=== PATIENT | male | born 1940 | race Caucasian/White ===

== ENCOUNTER 2017-01-18 23:09 | Inpatient (IN) | payer MEDICARE ==
[~2017-01-18] VITALS: Ht 180.3 cm; Wt 96.1 kg
[~2017-01-18 23:09] MED LIST: ALBU8.5H4 IH; CLOP75TA14 PO; CRES20T PO; DOXA4TAB2 PO; FLE10 PO; FLUT50DI IH; HYD1C EXT; HYDR1TAB91 PO; HYG25 PO; LISI10TA PO; METO25T PO; NASOCORT INH; NITR0.4T SL; OMEP20TA86 PO; PROZ20 PO; [UNRECOGNIZED DRUG - CODE] OP
[2017-01-19] VITALS (11 sets, daily range): BP systolic 111–145; BP diastolic 66–80; PULSE 69–88; RESP 24–48; O2SAT 88–97
[2017-01-19] MEDS ORDERED: Albuterol-Ipratropium 3 mL Inhalation Solution NEB PRN (02:15)
[2017-01-19] MEDS ORDERED: Alum-Mag Hydrox-Simeth 30 mL Suspension PO PRN (02:15)
[2017-01-19] MEDS ORDERED: Polyethylene Glycol (PEG) 17 Gm Powder PO PRN (02:15)
[2017-01-19 02:26] LABS: APPEARANCE,URINE HAZY (CLEAR,HAZY); COLOR,URINE DARK YELLOW (YELLOW); OCCULT BLOOD,URINE NEGATIVE (NEGATIVE); PH,URINE 5.5 (5.0-8.0); UROBILINOGEN,URINE NORMAL (NORMAL)
[2017-01-19] MEDS: 0.9% Sodium Chloride 500 ML IV SCH ×2 (03:35→09:02)
--- NOTE | 2017-01-19 04:21 | NUR ---
Admit Patient admitted to room 3[address] from [facility]. On arrival patient very dyspneic with respiratory rate in the 40s and SpO2 93% on 8L O2 via oxymask. Patient states that he has been feeling increasingly short of breath over the last several days. A&Ox3, RUBIO; able to stand at bedside to use urinal with 1 person assist. NS running at 100ml/hour. Continue to monitor.
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
[2017-01-19] MEDS: Albuterol-Ipratropium 3 mL Inhalation Solution NEB SCH ×4 (06:00→19:27)
[2017-01-19] MEDS: cefTRIAXone Inj 2,000 MG in Dextrose 5% Minibag Plus 50 ML IV SCH (07:53)
[2017-01-19 07:59] LABS: BASOPHILS % (AUTO) 0 % (0-3); EOSINOPHILS % (AUTO) 0 % (0-5); MONOCYTES % (AUTO) 2.1 % (4-12); Mean Corpuscular Hemoglobin 28.2 pg (27.0-35.0); Mean Corpuscular Volume 82.3 fL (81-100); NEUTROPHILS % (AUTO) 92.4 % (40-74); Platelet Count 159 bil/L (150-400)
[2017-01-19] MEDS: Sodium Chloride LOK Flush 10 mL Syringe IVFLUSH SCH ×2 (08:30→16:26)
[2017-01-19] MEDS: guaiFENesin 600 mg ER12 Tablet PO SCH ×3 (08:30→21:26)
[2017-01-19 08:50] LABS: Magnesium 1.7 mg/dL (1.6-2.6); Phosphorus 4.3 mg/dL (2.5-4.9); TROPONIN T 0.01 ug/L (0.0-0.011)
[2017-01-19] MEDS: predniSONE 20 mg Tablet PO SCH (08:59)
[2017-01-19] MEDS: Azithromycin Inj 500 MG in Dextrose 5% w/Vial Mate 250 ML IV SCH (08:59)
[2017-01-19] MEDS: Heparin 5,000 Unit/mL Inj SUBQ SCH ×2 (09:02→16:26)
--- NOTE | 2017-01-19 09:11 | DRSVH ---
PROCEDURE: US VENOUS LEG DUPLEX BILATERAL INDICATIONS: RLE edema, sob TECHNIQUE: Real-time imaging, as well as color and pulse Doppler interrogation, were performed of the deep veins of both legs from the inguinal ligament to the popliteal fossa. COMPARISON: None. FINDINGS: The deep veins are normally compressible, and free of intraluminal thrombus. Color and pu lse Doppler demonstrate normal phasic intravascular flow. There is normal augmentation response to d istal compression maneuver. IMPRESSION: No DVT found over either lower extremity. Dictated by: Phan Malik M.D. on 01/19/2017 at 9:10 Approved by: Phan Malik M.D. on 01/19/2017 at 9:11
[2017-01-19] MEDS ORDERED: PARO20TA5 PO (10:52)
[2017-01-19] MEDS ORDERED: PRD1T PO (10:52)
[2017-01-19] MEDS ORDERED: TRAZ-115 PO (10:52)
[2017-01-19] MEDS ORDERED: LIP40 PO (10:53)
[2017-01-19] MEDS ORDERED: ASPI-973 PO (10:54)
[2017-01-19] MEDS ORDERED: DOXY100C2 PO (10:54)
[2017-01-19] MEDS ORDERED: QUET50TA55 PO (10:56)
--- NOTE | 2017-01-19 11:27 | NUR ---
Evaluation completed. Please go to "Notes" then click on "Assessments and Notes" (bottom left corner of screen). Then select appropriate discipline tab on top of screen. Addendum: 01/19/17 at 1139 by MCKINLEY CABALLERO Recommend an outpatient modified barium swallow study d/t intermittent signs/symptoms of aspiration and hx of pneumonia. Also recommend an esophagram either as inpatient or outpatient d/t significant reflux.
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
--- NOTE | 2017-01-19 15:00 | DRSVH ---
PROCEDURE: CT ANGIO CHEST PULMONARY EMBOLISM ([id number]) INDICATIONS: tachycardia, tachypneic TECHNIQUE: After the administration of intravenous contrast, 2 mm thick sections acquired from the pulmonary api montse to the posterior costophrenic angles. 3-dimensional maximum intensity projection (MIP) coronal a nd sagittal reformats were then acquired through the thorax. For radiation dose reduction, the follo wing was used: automated exposure control, adjustment of mA and/or kV according to patient size. COMPARISON: [facility], CT, THORAX WITHOUT CONTRAST, 12/12/2016, 8:42. [facility], CR, [address] ST 1 VIEW, 12/09/2016, 21:35. [facility], CR, CHEST 1 VIEW, 02/02/2016, 7:19. [facility], C R, CHEST 2 VIEW, 03/18/2015, 15:47. [facility] CR, CHEST 1 VIEW, 01/18/2017, 20:33. [facility], CR, CHEST 1 VIEW, 01/03/2017, 16:54. FINDINGS: Image quality: Excellent. Pulmonary arteries: Pulmonary arteries are normal in size, and demonstrate no intraluminal filling d efects to suggest central pulmonary embolism. Lungs and pleura: Lungs are abnormal with a combination of pulmonary fibrosis and mild alveolitis, w ith superimposed COPD.. No pleural effusions or pneumothorax. Central and peripheral airways are pa tent. Mediastinum: Heart size is normal, without pericardial effusion. No mediastinal or hilar adenopathy . Thoracic aorta is normal in caliber and enhancement. Esophagus is normal in caliber, without hiat al hernia. Bones and chest wall: No suspicious bony lesions. Ribs and thoracic spine appear intact throughout. Thyroid gland is not well visualized. No axillary or supraclavicular adenopathy. Abdomen: Visualized upper abdominal solid organs appear normal in the early arterial phase of enhanc ement. IMPRESSION: A combination of emphysematous change and fibrotic change with mild alveolitis superimpo sed is present but no pulmonary embolus is seen. With reference to multiple prior plain films there has been little if any change in the overall appearance of the lung parenchyma over time. Dictated by: Phan Malik M.D. on 01/19/2017 at 14:55 Approved by: Phan Malik M.D. on 01/19/2017 at 14:58
--- NOTE | 2017-01-19 15:03 | PCM.PNMED ---
Subjective Date of Service Jan 19, 2017 Subjective Patient is a 76 year-old male with h/o COPD on home oxygen (3 L) and pulmonary fibrosis who presented with 3 days of increased shortness of breath. He was recently hospitalized from 01/03-01/08/[address] [facility] for acute on chronic hypoxic respiratory failure with very similar symptoms. Hospital day 1 Patient came in overnight from [facility]. He is a very poor historian ( dementia) and lets his take care of his medications. When examined, patient denied SOB, diaphoresis, leg pain, headache, palpitations, chest pain. He is not quite sure what diagnoses he has but does know that he uses 3-4 L of O2 at home. . Exam Vital Signs Vital Sign - Last Date Time Temp Pulse Resp B/P Pulse Ox O2 Delivery O2 Flow Rate FiO2 01/19/17 14:20 36.6 75 38 111/70 92 Nasal Cannula 3.00 Intake and Output 01/18/17 01/18/17 01/19/17 Cumulative From/Thru 15:00 23:00 07:00 01/19/17 00:55 - 01/19/17 06:38 Intake Total 323 ml 323 ml Output Total 350 ml 350 ml Balance -27 ml -27 ml Intake IV Total 323 ml 323 ml Output Urine Total 350 ml 350 ml # Bowel Movements 0 0 Exam General: Alert, Oriented X3, Cooperative, No Acute Distress Head: Normocephalic, atraumatic. Eyes: Right-sided ptosis (long-standing) Mouth: Mouth Normal, Mucous Membranes Moist/Plain Neck: Neck supple with full range of motion. No Thyromegaly. Chest & Lungs: Bibasilar crackles without wheezing. No rhonchi appreciated. Tachypneic but in no respiratory distress. Appears not to notice fast breathing. Cardiovascular: Regular Rate/Rhythm, Normal S1, Normal S2. Difficult to appreciate over respirations, but can detect faint systolic murmur. Radial pulses are 2+ bilaterally. Diminished posterior tibial pulses. GI: Non-tender, Non-distended, No masses, Normoactive bowel tones, Soft, burping frequently Extremities: Vertical surgical scars over the cervical and lumbar spine; 1+ LE edema to knee B/L when examined this morning with no calf tenderness Neurological: Cranial Nerves 2-12 grossly Intact, recognizes memory impairment. Psych: Normal mood and affect. IVs and Medications Medications Reviewed: Medications were reviewed in detail Lab and Diagnostics Result Diagram: 01/19/17 0745 01/19/17 0745 X-Rays, CTs and MRIs Chest x-ray performed at [facility] 01/18/17 shows diffuse chronic disease ( upon comparison to previous imaging) without definitive infiltrate, but could easily be missed given the degree of disease. Noncontrast CT of the chest performed 12/12/16 demonstrates diffuse fibrotic change throughout the right lung with apical emphysematous changes. Fibrotic changes are also noted in the apical portions of the left lung 01/19/17 CT ANGIO CHEST PULMONARY EMBOLISM ([id number]) Pulmonary arteries: Pulmonary arteries are normal in size, and demonstrate no intraluminal filling defects to suggest central pulmonary embolism. Lungs and pleura: Lungs are abnormal with a combination of pulmonary fibrosis and mild alveolitis, with superimposed COPD.. No pleural effusions or pneumothorax. Central and peripheral airways are patent. Mediastinum: Heart size is normal, without pericardial effusion. No mediastinal or hilar adenopathy. Thoracic aorta is normal in caliber and enhancement. Esophagus is normal in caliber, without hiatal hernia. Bones and chest wall: No suspicious bony lesions. Ribs and thoracic spine appear intact throughout. Thyroid gland is not well visualized. No axillary or supraclavicular adenopathy. Abdomen: Visualized upper abdominal solid organs appear normal in the early arterial phase of enhancement. IMPRESSION: A combination of emphysematous change and fibrotic change with mild alveolitis superimposed is present but no pulmonary embolus is seen. With reference to multiple prior plain films there has been little if any change in the overall appearance of the lung parenchyma over time. Dictated by: Phan Malik M.D. on 01/19/2017 at 14:55 Approved by: Phan Malik M.D. on 01/19/2017 at 14:58 01/19/17 US VENOUS LEG DUPLEX BILATERAL FINDINGS: The deep veins are normally compressible, and free of intraluminal thrombus. Color and pulse Doppler demonstrate normal phasic intravascular flow. There is normal augmentation response to distal compression maneuver. IMPRESSION: No DVT found over either lower extremity. Dictated by: Phan Malik M.D. on 01/19/2017 at 9:10 Approved by: Phan Malik M.D. on 01/19/2017 at 9:11 12-lead ECG EKG from [facility] shows sinus tachycardia with a rate of 104 with occasional PVCs and PACs. CT interval is borderline at 202, and the QRS is prolonged at 152, but the QTC is within normal range. QRS complex in lead V1 is consistent with RBBB. Deep Q waves in inferior leads are noted on previous exam. Cardiac Echo Impressions Please see echo report in past medical history Additional Diagnostics ABG performed at [facility]: pH of 7.4, PCO2 41.9, PO2 107 (O2 sat 98%), on an FiO2 of 0.4. Assessment & Plan 76-year-old male with history of COPD on home oxygen (3 L/m), and pulmonary fibrosis who presented to [facility] ER with complaint of approximately 3 days increased shortness of breath and productive cough. This is day 1. Note: In reviewing patient's medication list with the medications that he has been on in the past, it appears that he has decreased his medications considerably. Perhaps he is treading toward comfort? Need to call PCP or get PCP records on Saturday. 1. Exacerbation of chronic pulmonary disease, acute. Present on admission, active -Differentials exacerbation of COPD or pulmonary fibrosis, pneumonia, HF exacerbation, angina. Less likely pneumonia because of x-ray findings, leukocytosis could be from steroid use, no change in sputum production, no fevers or chills, no acute confusion, no pleurisy. and recent hospitalization with full course for community-acquired etiology. * Would meet criteria for healthcare associated pneumonia -PE r/o with CT PE protocol -Per [facility] report, patient responded to nebulizer treatments, oxygen supplementation and IV dose of Solu-Medrol. -Patient received a dose of Levaquin at [facility], and for right now we will continue ceftriaxone and azithromycin until we get diagnostic studies back -Diagnostic studies ordered this admission include: * Sputum culture, normal elodia * Respiratory PCR, negative * Strep Ag negative and Legionella urine antigen pending * Pro calcitonin 0.8 * Repeat troponin <0.010 (troponin I was elevated at [facility] (in setting of mild tachycardia)) -We will need to determine with the patient's 's notes say 1.5 pills daily of prednisone. Using 20 mg prednisone currently (air movement okay with no wheezing). Discussed this with who does not know the dose and they use [facility] mail order for their medications. Further clarification necessary. -Nebs scheduled -His home medication list states that he no longer uses inhalers -Consider pulmonary consult 2. Acute on chronic hypoxic respiratory failure. POA -Management as noted above -DNI, BiPAP OK 3. Right lower extremity edema of unknown chronicity. Present on admission - On exam today, both LE have only 1+ edema, no calf tenderness - Doppler showed no DVT 4. Diarrhea, nonbloody, reported for the last month. -Potentially related to his recent antibiotics -Monitor this admission, and if greater than 3 stools a day consider sending for further analysis 5. Elevated lactic acid without acidosis of unknown chronicity. Present on admission - 2.1 initially, now 1.1 -Gentle fluid resuscitation initially but stopped with normalization of lactic acid 6. Elevated serum bicarbonate of unknown chronicity -In the setting of COPD potentially indicative of a chronic CO2 retainer -The PaCO2 noted on ABG at [facility] of 41.3 potentially reflects a decrease in his baseline due to tachypnea. However, this conclusion is not readily demonstrated as his pH is 7.4. -Continue to monitor labs 7. Reported dysphagia of unknown chronicity -Speech evaluation revealed severe dysmotility. Thickened liquids ordered. -Continue his home omeprazole of 20mg -Follow up as outpatient Chronic conditions: CAD-Continue aspirin. Patient no longer takes a statin. Confirm with PCP on Saturday Ischemic cardiomyopathy with EF 40-45% Moderate to severe aortic stenosis COPD Pulmonary fibrosis on chronic steroids Hypertension not currently on medications Hyperlipidemia no longer takes a statin GERD omeprazole 20mg BID THU-apparently is not very compliant with CPAP at home. 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 Patient is admitted under inpatient status with expected length of stay greater than 2 midnights due to severity of presenting symptoms, risk of adverse event, and complexity of treatment plan. GI Prophylaxis: Proton Pump Inhibitor VTE Prophylaxis: Sub-Q Heparin (Unfractionated) Resuscitation Status: DNR/DNI:Do Not Resuscitate/Intubate Attending Statement The patient was seen and examined together with Dr. Garcia on 01/19/2017 and I agree with the history, exam and plan as outlined in the note above. Zuly Garcia DO Jan 19, 2017 15:03 Jamal Covarrubias MD Jan 20, 2017 12:54
[2017-01-19] MEDS ORDERED: OMEP20CA11 PO (15:09)
[2017-01-19] MEDS ORDERED: TAMS0.4C98 PO (15:10)
--- NOTE | 2017-01-19 15:25 | NUR ---
Social Work-initial assessment: Data:See initial assessment. Pt is a 76 y/o male who was admitted on 01/19/17 for pneumonia per H&P. Pt's insurance is [facility] and PCP is Pablo Lr MD. EMR reviewed. SW met with pt at bedside, SW role explained. Pt is alert and oriented x3. Pt resides at home with his , son, and grandchildren in [place] where he remains independent with ADLS. Pt uses a fww at baseline and does drive. pt has no HH or SNF history. Pt has no buttermaker helper care or VA benefits. Pt is on Home O2 through [employer]. Pt states he feel like he has enough help at home from family at discharge. Per RN notes, pt has been up independent in his room. SW discussed DPOA/advanced directive, pt has completed this, SW encouraged a copy to be brought into the hospital. Pt states his will provide transport home at discharge. SW provided phone number and plan on white board in room. No anticipated discharge needs. SW will continue to follow if needs arise. Assessment:Pt who is independent at baseline. Plan:Pt to discharge home when medically stable via POV. No anticipated discharge needs. SW will continue to follow if needs arise. CLOVER Izaguirre Addendum: 01/19/17 at 1533 by BEBETO MOREIRA SS Amended: Links added.
[2017-01-19] MEDS: Pantoprazole 40 mg ER24 Tablet PO SCH (16:26)
[2017-01-19] MEDS ORDERED: Magnesium Sulf 2 Gm/50mL Water 2 GM in IV Premix 1 EACH IV ONE (17:05)
--- NOTE | 2017-01-19 17:49 | NUR ---
Telemetry Update: SVT Patient has been Sinus Rhythm 70-90s with an IVCD, PACs and PVCs. Patient converted to SVT in the 170s from 12:20 to 12:43, and from 16:25 to 16:27. ANGI Ignacio aware.
[2017-01-19] MEDS: PARoxetine 20 mg Tablet PO SCH (21:25)
[2017-01-20] VITALS (12 sets, daily range): BP systolic 103–144; BP diastolic 62–80; PULSE 55–92; RESP 20–34; O2SAT 90–96
[2017-01-20] MEDS: Sodium Chloride LOK Flush 10 mL Syringe IVFLUSH SCH ×3 (00:02→16:44)
[2017-01-20] MEDS: Heparin 5,000 Unit/mL Inj SUBQ SCH ×3 (00:02→16:45)
--- NOTE | 2017-01-20 03:09 | NUR ---
Turning Patient complaining of buttock discomfort while in bed. Educated on turning and asked if he would like a pillow to prop him up on one side or the other to alleviate that discomfort and pressure. Patient refused to turn. Will continue to offer turning and educate on importance.
--- NOTE | 2017-01-20 03:34 | NUR ---
Respiratory Patient has increased work of breathing when at rest and becomes more short of breath with exertion. Lungs sound clear with the exception of minor faint wheezing in the upper lobes. Patient less tachypneic than at the start of shift and O2 sats have stayed in the low 90s on 3L NC. Patient uses 3 L O2 at home per H&P. Productive cough with white creamy sputum present. Encouraging coughing and deep breathing when awake. Assessing O2 needs, WOB, and lung sounds for any changes.
[2017-01-20 06:00] LABS: BASOPHILS % (AUTO) 0.1 % (0-3); EOSINOPHILS % (AUTO) 0.4 % (0-5); MONOCYTES % (AUTO) 7.8 % (4-12); Mean Corpuscular Hemoglobin 27.4 pg (27.0-35.0); Mean Corpuscular Volume 86.2 fL (81-100); NEUTROPHILS % (AUTO) 84.6 % (40-74); Platelet Count 149 bil/L (150-400)
[2017-01-20 06:41] LABS: Magnesium 2.1 mg/dL (1.6-2.6)
[2017-01-20] MEDS ORDERED: Potassium Chloride 20 mEq SR Tablet PO ONE (08:10)
[2017-01-20] MEDS: Pantoprazole 40 mg ER24 Tablet PO SCH ×2 (08:12→16:45)
[2017-01-20] MEDS: cefTRIAXone Inj 2,000 MG in Dextrose 5% Minibag Plus 50 ML IV SCH (08:12)
[2017-01-20] MEDS: guaiFENesin 600 mg ER12 Tablet PO SCH ×2 (08:13→22:03)
[2017-01-20] MEDS: predniSONE 20 mg Tablet PO SCH (08:13)
[2017-01-20] MEDS: Albuterol-Ipratropium 3 mL Inhalation Solution NEB SCH ×4 (08:42→20:28)
[2017-01-20] MEDS: Azithromycin Inj 500 MG in Dextrose 5% w/Vial Mate 250 ML IV SCH (09:03)
--- NOTE | 2017-01-20 11:35 | DRSVH ---
PROCEDURE: X-RAY CHEST ONE VIEW, PORTABLE ([id number]) INDICATIONS: sob TECHNIQUE: One view of the chest was acquired. COMPARISON: [facility], CR, CHEST 2VW, 12/05/2011, 11:08. FINDINGS: Surgical changes and devices: filer and sander leads and oxygen tubing is seen over the chest. Lungs and pleura: No pleural effusions or pneumothorax there diffuse increased chronic markings. In addition there are increased markings at the right base with loss of definition of the right hemidiap hragm and some increased markings in the right upper lung field. Left lung is unchanged. Mediastinum: Mediastinal contours appear normal. Heart size is normal. Bones and chest wall: No suspicious bony lesions. Overlying soft tissues appear unremarkable. IMPRESSION: Infiltrates in the right lung consistent with pneumonia. Dictated by: Naveen Jimenez M.D. on 01/20/2017 at 11:32 Approved by: Naveen Jimenez M.D. on 01/20/2017 at 11:33
--- NOTE | 2017-01-20 11:50 | NUR ---
Evaluation completed. Please go to "Notes" then click on "Assessments and Notes" (bottom left corner of screen). Then select appropriate discipline tab on top of screen.
[2017-01-20] MEDS: Dextrose 5% 1,000 ML IV SCH (12:51)
--- NOTE | 2017-01-20 13:31 | CONS ---
[address] [address] CONSULTATION REPORT PATIENT: RYANNE PELAEZ : 1940 MR#: [id number] ADMIT: 01/19/2017 JOB ID: [id number] DATE OF SERVICE: IDENTIFICATION: Dr. Zuly Garcia has asked that I consult on this 76-year-old male with SVT, reported wide- complex tachycardia. HISTORY: The patient has known underlying coronary disease with a history of inferior myocardial infarction requiring RCA stenting in 2005, with subsequent chronic progressive dyspnea with normal BNPs and found to have progressive pulmonary fibrosis with abnormal PFTs and right ventricular dysfunction. He has also had intermittent atypical chest discomfort with a sestamibi study in 2012. It revealed only a fixed inferior defect without ischemia. His treatment has been complicated by progressive dementia and has been followed by Dr. 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 He has had multiple recent admissions for his lung disease, predominantly at [facility] for respiratory issues with normal BNPs and borderline elevated troponins due to his hypoxia, most recently in November 2016, when he had an echocardiogram that showed an ejection fraction of 40% to 45% with inferior wall akinesis which was unchanged and mild-moderate right ventricular enlargement with mild right ventricular dysfunction but uncertain pulmonary artery pressures. He was found to have moderately severe aortic stenosis with a mean gradient of 32 mmHg that was slightly progressive and a chest CT confirmed severe fibrotic lung disease. He was readmitted in on January 03, 2017 again with respiratory failure and hypercarbia and was treated with steroids, antibiotics, and bronchodilator therapy with slow clinical improvement but continued to have desaturations into the 80 percent range with any type of exertion and therefore had his supplemental oxygen increased. He was discharged from that hospital on January 08, 2017, and I saw him in followup in my clinic on January 09, 2017, and he felt that he was essentially back to his baseline although with a progressively declining state, although his dementia has always made history-taking challenging. At that time, he had frequent PACs and a known RBBB. He does have a history of brief SVT in 2010 that responded to potassium supplementation. Given his end-stage lung disease, his care was returned to Dr. Lr without any further cardiology followup planned with recommendations to consider hospice care. The patient had been previously seen by the palliative care team and he declined any further followup with them. He presented to [facility] ED yesterday with four days of productive cough and increased dyspnea with home oxygen levels again in the low 80s that increased to the 90s in the ER with bronchodilator therapy. His ECG showed sinus tachycardia, 100-120, with right bundle branch block but was otherwise unchanged from previous. His potassium was noted to be 3.6, with a lactate of 2.2 and a BNP of 277 and again a mildly abnormal troponin of 0.065. His D-dimer was notably positive and the patient apparently reported having diarrhea over the past month. He was started on antibiotic therapy and transferred to [facility] because of a lack of beds at [facility]. Here, he underwent a CT angiogram that showed no evidence for pulmonary embolism although confirmed severe underlying structural lung disease. An ultrasound suggested the absence of any DVT. Yesterday afternoon, he was noted to have runs of SVT at rates up to 170 BPM, the longest lasting around 20 minutes, with another brief episode. While there were reports of ventricular tachycardia, in reviewing the telemetry data from yesterday, I see none. On the basis of this, consultation was requested. Today, he feels somewhat more fatigued than yesterday but otherwise is unchanged. History taking is quite challenging because of his memory deficits and inability to recall any details, although he does think that he had some palpitations recently with some associated lightheadedness although cannot recollect any other details. He initially denied any chest discomfort but then said he had some chest pressure but again cannot provide any relevant history or details. He is not having any chest discomfort currently. He continues to have a productive cough and denies any pedal edema and currently denies any diarrhea. PAST MEDICAL HISTORY: Notable for hypertension and hyperlipidemia, as well as sleep apnea, but not on any see CPAP. History of spinal stenosis and Ocasio's palsy, as well as GERD and depression. He has had progressive dementia. HOME MEDICATIONS: 1. Aspirin 81 mg. 2. Atorvastatin 20 mg daily. 3. Flomax 0.4 mg daily. 4. Magnesium 1 tablet daily. 5. Omeprazole 20 mg daily. 6. Paroxetine one tablet daily. 7. Prednisone 30 mg daily, on a current taper. 8. Multiple inhalers. 9. Trazodone 50 mg q.h.s. ALLERGIES: No known drug allergies. FAMILY HISTORY: Father had coronary artery disease and at age 78 but no other relevant family history. SOCIAL HISTORY: The patient is a reformed smoker and has not smoked for many years. He lives with his . Denies any alcohol consumption. REVIEW OF SYSTEMS: This was unobtainable because of the patient's inability to recollect any specific details. PHYSICAL EXAMINATION: Pleasant elderly male with obvious dyspnea but in no acute distress, with a productive cough. He has obvious cognitive and memory deficits. HR : 73. BP 103/62, but generally has been in the 120s. O2 saturation is 90% on 3 L of nasal cannula. Weight is 96.1 kg. Skin: Warm and dry. HEENT: EOMI although with right eye ptosis. Lungs: Coarse breath sounds, more with inspiration, without any appreciable rales or wheeze. CV: Distant heart tones obscured by his breath sounds but no obvious murmurs or gallops. There is no JVD. Carotid pulses are diminished but no bruits. Abdomen: Nondistended, nontender, with normal bowel tones, and without any obvious hepatosplenomegaly. Extremities: Warm, with 2+ bilateral pitting edema but no cyanosis or clubbing. : Wearing incontinence diapers. Neuro: Moves all four extremities. Psych: Awake, alert, and oriented, although with obvious memory deficits. LABORATORY: White count this morning is 10.2, up from 5.8 yesterday. Hematocrit is 42%. Potassium yesterday was 5.2, but this morning is 3.6. Magnesium was 1.7 yesterday and is 2.1 today after IV magnesium supplementation. BUN is 7, with a creatinine of 0.7. Glucose 107. Lactate yesterday was 2.1. It improved down to 1.1. Albumin is 2.7. ECG: From yesterday shows sinus rhythm with frequent PACs and a right bundle branch block with probable previous old inferior infarction. Telemetry: As above. He appears to have a fairly regular SVT at a rate of around 170 bpm with probable retrograde P waves. I do not see any wide-complex tachycardia. IMPRESSION: 1. Supraventricular tachycardia. I suspect this is a manifestation of his underlying lung disease impacting his heart, perhaps in combination with borderline low potassium and magnesium levels. I do not see any evidence of any concerning ventricular ectopy, but given the patient's poor prognosis with end-stage lung disease, I would not be aggressive in any fashion in treatment of this. For symptomatic relief, I would attempt low-dose beta blockade using metoprolol 12.5 mg b.i.d. with subsequent titration as tolerated. If he is unable to tolerate beta blockade because of his respiratory issues, diltiazem could be considered, or if he is intolerant because of hypotension, then digoxin could be considered, although with close observation of digoxin levels. Beyond this, I would simply strive to maintain his potassium greater than 4.0 and magnesium greater than 2.0 on a regular basis. I will provide him with some potassium supplementation today, as well as ongoing magnesium supplementation, but these can be adjusted as his subsequent laboratories suggest. 2. End-stage pulmonary fibrosis. I again had a conversation with him about his goals of therapy. He has had multiple recent admissions. I have again encouraged him to consider hospice care therapy. He admits that he believes this is the "last time I will be coming to the hospital." I will defer further discussions in regards to hospice care to the hospitalist team. 3. Coronary artery disease, status post inferior infarction. No compelling for any active ischemia, nor would I would pursue any evaluation in regards to this, given his limited prognosis from his lung disease. 4. Dementia. He may require care in a intermediate facility. 5. Hypertension. Adequately controlled. 6. Hyperlipidemia. Given his poor prognosis, one could consider simplifying his medications by stopping his atorvastatin. RECOMMENDATIONS: 1. Start metoprolol 12.5 mg b.i.d., with upward titration as his heart rate and blood pressure and respiratory status allow. Alternatively, diltiazem or digoxin could be considered but with close observation for a digoxin level, if he is placed on this. 2. Maintain potassium and magnesium levels greater than 4.0 and 2.0, respectively ,with ongoing supplementation as needed. 3. Consideration for referral to hospice care. 4. I will defer the management of his other medical problems to the hospitalist team. At this point, I will not plan on seeing him back in followup. Please call if you have any further questions. I spent from 7:11 to 8:33 reviewing the patient's record, interviewing the patient, having prolonged discussions about his prognosis and answering his questions and documenting such.
--- NOTE | 2017-01-20 17:29 | PCM.PNMED ---
Subjective Date of Service Jan 20, 2017 Julia Iyer is 76-year-old male with past medical history significant for oxygen dependent COPD on 3 L/m and pulmonary fibrosis who presented to [facility] ER with complaint of approximately 3 days increased shortness of breath and productive cough and was transferred to [facility] for further workup. Hospital day #2. Overnight: The patient's wheezing improved and he continued to desaturate with activity. There were no other acute events. Telemetry overnight was sinus rhythm, heart rate 60 to 90's, with one run of SVT overnight in the 170's, IVCD , frequent PACs, and occasional PVC pairs. The patient is resting in bed comfortably and in no acute distress. He denies headache, shortness of breath, chest pain, abdominal pain, nausea, vomiting, fever, chills, dysuria, diarrhea or constipation. He endorses cough that is chronic but more productive than usual. Although he denies shortness of breath he has conversational dyspnea. He is voiding and eliminating without difficulty. He is up ambulating with assistance. . Exam Vital Signs Vital Sign - Last Date Time Temp Pulse Resp B/P Pulse Ox O2 Delivery O2 Flow Rate FiO2 01/20/17 15:52 68 32 92 Nasal Cannula 3.00 01/20/17 14:49 36.4 118/68 Intake and Output 01/19/17 01/19/17 01/20/17 Cumulative From/Thru 15:00 23:00 07:00 01/19/17 00:55 - 01/20/17 06:28 Intake Total 1318 ml 800 ml 2441 ml Output Total 400 ml 1050 ml 1800 ml Balance 918 ml -250 ml 641 ml Intake Oral 1318 ml 800 ml 2118 ml IV Total 323 ml Output Urine Total 400 ml 1050 ml 1800 ml # Bowel Movements 1 1 Exam General: Elderly male lying in bed and in no acute distress, well-developed, well-nourished, appropriately interactive HEENT: Normocephalic, atraumatic. External ears without defect. Pupils equal, round, and reactive to light. Anicteric sclerae and moist conjunctivae. Right eye ptosis. Oropharynx free of erythema and cobble stoning. Mucous membranes dry. Neck: Supple with full range of motion. No jugular venous distension. No bruits. No lymphadenopathy or thyromegaly. Cardiovascular: Regular rate and rhythm with no murmurs, rubs, or gallops appreciated Pulmonary: Clear to auscultation bilaterally with scattered expiratory wheeze. No crackles or rhonchi. Normal respiratory effort with no use of accessory muscles. Abdomen: Soft, nontender, nondistended, bowel sounds present. No hepatosplenomegaly or masses appreciated. Extremities: No clubbing or cyanosis. Skin: Normal temperature, turgor, and texture; no rash, ulcers, or subcutaneous nodules appreciated. Neurological: Cranial nerves grossly intact. Normal muscle strength, tone, and bulk. Reflexes, coordination, and sensory function within normal limits. No known gait impairment. Psychiatric: Normal mood and affect. Alert and oriented to person, place, and time. . IVs and Medications Medications Reviewed: Medications were reviewed in detail Lab and Diagnostics Item Value Date Time Procalcitonin 0.08 ng/mL 01/19/17 0200 Procalcitonin 0.06 ng/mL 01/20/17520 Item Value Date Time Calcium Level 8.2 mg/dL L 01/20/17520 Magnesium Level 2.1 mg/dL 01/20/17 05 Total Bilirubin 1.1 mg/dL 01/20/17520 Aspartate Amino Transf (AST/SGOT) 27 U/L 01/20/17 05 Alanine Aminotransferase (ALT/SGPT) 44 U/L 01/20/17 05 Alkaline Phosphatase 71 U/L 01/20/17 05 Total Protein 4.8 g/dL L 01/20/17 05 Albumin 2.7 g/dL L 01/20/17520 Result Diagram: 01/20/1752001/20/17520 Microbiology Viral respiratory PCR negative. MRSA screen negative. Strep pneumonia and legionella urine antigens negative. . X-Rays, CTs and MRIs X-RAY CHEST ONE VIEW, PORTABLE IMPRESSION: Infiltrates in the right lung consistent with pneumonia. Dictated by: Naveen Jimenez M.D. on 01/20/2017 at 11:32 Approved by: Naveen Jimenez M.D. on 01/20/2017 at 11:33 CT ANGIO CHEST PULMONARY EMBOLISM IMPRESSION: A combination of emphysematous change and fibrotic change with mild alveolitis superimposed is present but no pulmonary embolus is seen. With reference to multiple prior plain films there has been little if any change in the overall appearance of the lung parenchyma over time. Dictated by: Phan Malik M.D. on 01/19/2017 at 14:55 Approved by: Phan Malik M.D. on 01/19/2017 at 14:58 US VENOUS LEG DUPLEX BILATERAL FINDINGS: The deep veins are normally compressible, and free of intraluminal thrombus. Color and pulse Doppler demonstrate normal phasic intravascular flow. There is normal augmentation response to distal compression maneuver. IMPRESSION: No DVT found over either lower extremity. Dictated by: hPan Malik M.D. on 01/19/2017 at 9:10 Approved by: Phan Malik M.D. on 01/19/2017 at 9:11 . 12-lead ECG EKG from [facility] shows sinus tachycardia with a rate of 104 with occasional PVCs and PACs. OH interval is borderline at 202, and the QRS is prolonged at 152, but the QTC is within normal range. QRS complex in lead V1 is consistent with RBBB. Deep Q waves in inferior leads are noted on previous exam. Cardiac Echo Impressions Please see echo report in past medical history. Additional Diagnostics ABG performed at [facility]: pH of 7.4, PCO2 41.9, PO2 107 (O2 sat 98%), on an FiO2 of 0.4. Assessment & Plan Daxa Iyer is 76-year-old male with past medical history significant for oxygen dependent COPD on 3 L/m and pulmonary fibrosis who presented to [facility] ER with complaint of approximately 3 days increased shortness of breath and productive cough and was transferred to [facility] for further workup. Hospital day #2. 1. Acute exacerbation of chronic obstructive pulmonary disease, present on admission. Active. -Differential diagnosis includes: Worsening pulmonary fibrosis, pneumonia, HF exacerbation, angina. Less likely pneumonia because of x-ray findings, leukocytosis could be from steroid use, no change in sputum production, no fevers or chills, no acute confusion, no pleurisy. * Would meet criteria for healthcare associated pneumonia with recent hospitalization for community-acquired etiology. -PE r/o with CT PE protocol -Per [facility] report, patient responded to nebulizer treatments, oxygen supplementation and IV dose of Solu-Medrol. -Patient received a dose of Levaquin at [facility]. Ceftriaxone and azithromycin were started upon admission. Discontinued IV antibiotics and started levofloxacin 750 mg daily starting tomorrow. - Diagnostic studies ordered this admission include: * Sputum culture, normal elodia * Respiratory PCR, negative * Strep Ag negative and Legionella urine antigen pending * Pro calcitonin 0.8 - Repeat troponin negative <0.010 (troponin I was elevated at [facility] in setting of mild tachycardia and likely demand ischemia. - Continue DuoNebs 4 times a day while awake and albuterol nebs every 2 hours as needed for shortness of breath. - His home medication list states that he no longer uses inhalers. - Consider pulmonary consultation if continues to decline clinically. 2. Acute on chronic hypoxemic respiratory failure, present on admission. Active. - Management as noted above. - DNI, BiPAP OK. - Continue supplemental oxygen as needed when necessary. Patient is on 3 L at baseline. 3. Hypernatremia, not present on admission. Active. - Calculated free water deficit 1.8 L. - We will replete slowly with D5W at 50 mL/hr over the next 36 hours. - Encouraged by mouth intake. 4. Right lower extremity edema, unknown acuity, present on admission. Active. - Venous Doppler ultrasound showed no DVT, as above. - May possibly represent CHF and may consider performing an echocardiogram. 5. Diarrhea, chronic. Stable. - Patient reports nonbloody diarrhea for the last month. - Potentially related to his recent antibiotics. - Monitor this admission, and if greater than 3 stools a day consider sending for further analysis. 6. Elevated lactic acid without acidosis, acuity unknown, present on admission. Resolved. - 2.1 initially, now normalized at 1.1. - Gentle fluid resuscitation initially but stopped with normalization of lactic acid 6. Elevated serum bicarbonate of unknown chronicity - In the setting of COPD potentially indicative of a chronic CO2 retainer - The PaCO2 noted on ABG at [facility] of 41.3 potentially reflects a decrease in his baseline due to tachypnea. However, this conclusion is not readily demonstrated as his pH is 7.4. - Continue to monitor labs. 8. Dysphagia, unknown acuity, present on admission. Active. - Speech evaluation revealed severe dysmotility. Thickened liquids ordered. Continue to work with speech therapy daily. - Continue his home omeprazole of 20mg - Follow up as outpatient Chronic conditions: CAD, chronic. Stable. - Continue aspirin. Patient no longer takes a statin. Confirm with PCP on Saturday Ischemic cardiomyopathy with EF 40-45% and moderate to severe aortic stenosis, chronic. Presumed stable. Pulmonary fibrosis on chronic steroids, chronic. Stable. Hypertension, chronic. Stable. - Not currently adequately treated. Hyperlipidemia, chronic. Stable. - No longer on statin therapy. GERD, chronic. Stable. - Continue Protonix 20 mg twice a day. THU, chronic. Stable. - Apparently is not very compliant with CPAP at home. BPH, chronic. Stable. - Continue tamsulosin. 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 Stable. Depression/anxiety, chronic. Stable. Chronic neck and low back pain with sciatica, chronic. Stable. Cognitive decline with memory impairment, chronic. Stable. PRN antiemetics: Zofran and Maalox. PRN bowel regimen: Senna and MiraLAX. PRN analgesics: Tylenol. Disposition: Discharge home in 1-2 days depending upon clinical course. . GI Prophylaxis: Proton Pump Inhibitor VTE Prophylaxis: Sub-Q Heparin (Unfractionated) Resuscitation Status: DNR/DNI:Do Not Resuscitate/Intubate Attending Statement The patient was seen and examined together with Dr. Sweeney on 01/20/2017 and I agree with the history, exam and plan as outlined in the note above. Mckayla Sweeney DO Jan 20, 2017 17:29 Jamal Covarrubias MD Jan 21, 2017 09:46
[2017-01-20] MEDS ORDERED: Albuterol 2.5 mg/3 mL Inhalation Solution NEB PRN (17:40)
--- NOTE | 2017-01-20 17:42 | NUR ---
Metoprolol admin 1536 - Per Dr. Sweeney from Dr. Schmid (developmental specialist) to continue metoprolol even if patient is bradycardic unless patient is symptomatic.
--- NOTE | 2017-01-20 20:07 | NUR ---
Tachycardia Per test cell technician Pt had another run of tachycardia. Pt assessed and was asymptomatic. Md notified.
[2017-01-20] MEDS: PARoxetine 20 mg Tablet PO SCH (22:05)
[2017-01-21] VITALS (12 sets, daily range): BP systolic 101–136; BP diastolic 62–73; PULSE 55–88; RESP 20–32; O2SAT 88–94
[2017-01-21] MEDS: Sodium Chloride LOK Flush 10 mL Syringe IVFLUSH SCH ×4 (00:30→20:15)
[2017-01-21] MEDS: Heparin 5,000 Unit/mL Inj SUBQ SCH ×4 (00:43→23:11)
--- NOTE | 2017-01-21 01:53 | NUR ---
Tachycardia: At 2130 pt had four minutes of SVT per maintenance mechanic telephone, with rate up to the 170s. At that time, pt was sitting up in the bed trying to "spit". Pt was tachypneic, although when heart rate decreased back to the 80s, tachypnea continued. Metoprolol was administered shortly after this episode. Pt took meds sitting on the side of the bed, sat up for 40 minutes after medication. Pt was noted to be belching prior to and after medication.
[2017-01-21 06:18] LABS: BASOPHILS % (AUTO) 0.2 % (0-3); MONOCYTES % (AUTO) 7.7 % (4-12); Mean Corpuscular Hemoglobin 27.6 pg (27.0-35.0); Mean Corpuscular Volume 86.9 fL (81-100); NEUTROPHILS % (AUTO) 81.3 % (40-74); Platelet Count 163 bil/L (150-400)
[2017-01-21] MEDS ORDERED: levoFLOXacin 750 mg Tablet PO SCH (07:30)
--- NOTE | 2017-01-21 07:39 | NUR ---
Turning: Pt refused turning despite education on the importance with a small wound on buttock. Pt states he moves on own and declined assistance with pillows. Pt also sits on the edge of the bed. Calmoseptine applied and a wound consult is ordered.
[2017-01-21] MEDS: Albuterol-Ipratropium 3 mL Inhalation Solution NEB SCH ×4 (07:54→20:29)
[2017-01-21] MEDS: guaiFENesin 600 mg ER12 Tablet PO SCH ×2 (08:30→20:22)
[2017-01-21] MEDS ORDERED: KCl 40 mEq/D5W 500 mL 40 MEQ in IV Premix 500 EACH IV ONE (08:55)
[2017-01-21] MEDS: Pantoprazole 40 mg ER24 Tablet PO SCH ×2 (08:59→16:17)
[2017-01-21] MEDS: predniSONE 20 mg Tablet PO SCH (08:59)
[2017-01-21] MEDS: Dextrose 5% 1,000 ML IV SCH (09:08)
[2017-01-21] MEDS ORDERED: Sodium Chloride NAS 45 mL Spray NASAL PRN ×2 (12:25→14:20)
--- NOTE | 2017-01-21 13:10 | NUR ---
Palliative Care Palliative Care received order from Dr Sweeney 01/21/17 to assist with goals of care. Patient is a 76 year old man with history of oxygen dependent COPD and pulmonary fibrosis. He was admitted 01/19/17 for care of pneumonia/COPD. Patient lives at home with /family. Hellen Iyer () [phone], Palliative Care to follow. Yolanda Mendenhall
--- NOTE | 2017-01-21 14:55 | PCM.PNMED ---
Subjective Date of Service Jan 21, 2017 Subjective Daxa Iyer is 76-year-old male with past medical history significant for oxygen dependent COPD on 3 L/m and pulmonary fibrosis who presented to [facility] ER with complaint of approximately 3 days increased shortness of breath and productive cough and was transferred to [facility] for further workup. Hospital day #3. Today patient states that he is feeling about the same. Still has intermittent SOB. His left hand is swollen secondary to IV infiltration and his IV was moved to the right. He has been eating. Exam Vital Signs Vital Sign - Last Date Time Temp Pulse Resp B/P Pulse Ox O2 Delivery O2 Flow Rate FiO2 01/21/17 13:41 36.4 65 26 113/66 93 Nasal Cannula 3.00 Intake and Output 01/20/17 01/20/17 01/21/17 Cumulative From/Thru 15:00 23:00 07:00 01/19/17 00:55 - 01/21/17 06:00 Intake Total 1788 ml 300 ml 4529 ml Output Total 675 ml 970 ml 3445 ml Balance 1113 ml -670 ml 1084 ml Intake Oral 1240 ml 300 ml 3658 ml IV Total 548 ml 871 ml Output Urine Total 675 ml 970 ml 3445 ml # Voids 3 3 # Bowel Movements 0 1 Exam General: Alert, Cooperative, No Acute Distress Head: Normocephalic, atraumatic. Eyes: Right-sided ptosis (long-standing) Mouth: Mouth Normal, Mucous Membranes Moist/[place] Neck: Neck supple. No Thyromegaly. Chest & Lungs: Bibasilar crackles without wheezing, improved. No rhonchi appreciated. Tachypneic but in no respiratory distress. Appears not to notice fast breathing. Cardiovascular: Regular Rate/Rhythm, Normal S1, Normal S2. Difficult to appreciate over respirations, but can detect faint systolic murmur. Radial pulses are 2+ bilaterally. Diminished posterior tibial pulses. GI: Non-tender, Non-distended, No masses, Normoactive bowel tones, Soft, burping frequently Extremities: Vertical surgical scars over the cervical and lumbar spine; no LE edema today, left hand edematous Neurological: Cranial Nerves 2-12 grossly Intact, recognizes memory impairment. Psych: Normal mood and affect. IVs and Medications Medications Reviewed: Medications were reviewed in detail Lab and Diagnostics Result Diagram: 01/21/17 0530 01/21/17 0530 Microbiology Viral respiratory PCR negative. MRSA screen negative. Strep pneumonia and legionella urine antigens negative. . X-Rays, CTs and MRIs X-RAY CHEST ONE VIEW, PORTABLE IMPRESSION: Infiltrates in the right lung consistent with pneumonia. Dictated by: Naveen Jimenez M.D. on 01/20/2017 at 11:32 Approved by: Naveen Jimenez M.D. on 01/20/2017 at 11:33 CT ANGIO CHEST PULMONARY EMBOLISM IMPRESSION: A combination of emphysematous change and fibrotic change with mild alveolitis superimposed is present but no pulmonary embolus is seen. With reference to multiple prior plain films there has been little if any change in the overall appearance of the lung parenchyma over time. Dictated by: Phan Malik M.D. on 01/19/2017 at 14:55 Approved by: Phan Malik M.D. on 01/19/2017 at 14:58 US VENOUS LEG DUPLEX BILATERAL FINDINGS: The deep veins are normally compressible, and free of intraluminal thrombus. Color and pulse Doppler demonstrate normal phasic intravascular flow. There is normal augmentation response to distal compression maneuver. IMPRESSION: No DVT found over either lower extremity. Dictated by: Phan Malik M.D. on 01/19/2017 at 9:10 Approved by: Phan Malik M.D. on 01/19/2017 at 9:11 . 12-lead ECG EKG from [facility] shows sinus tachycardia with a rate of 104 with occasional PVCs and PACs. MI interval is borderline at 202, and the QRS is prolonged at 152, but the QTC is within normal range. QRS complex in lead V1 is consistent with RBBB. Deep Q waves in inferior leads are noted on previous exam. Cardiac Echo Impressions Please see echo report in past medical history. Additional Diagnostics ABG performed at [facility]: pH of 7.4, PCO2 41.9, PO2 107 (O2 sat 98%), on an FiO2 of 0.4. Assessment & Plan Daxa Iyer is 76-year-old male with past medical history significant for oxygen dependent COPD on 3 L/m and pulmonary fibrosis who presented to [facility] ER with complaint of approximately 3 days increased shortness of breath and productive cough and was transferred to [facility] for further workup. Hospital day #3. 1. Acute exacerbation of COPD, present on admission. Active. -Differential diagnosis includes: Worsening pulmonary fibrosis, pneumonia, HF exacerbation, angina. Less likely pneumonia because of x-ray findings, leukocytosis could be from steroid use, no change in sputum production, no fevers or chills, no acute confusion, no pleurisy. * Would meet criteria for healthcare associated pneumonia with recent hospitalization for community-acquired etiology. -PE r/o with CT PE protocol -Per [facility] report, patient responded to nebulizer treatments, oxygen supplementation and IV dose of Solu-Medrol. -Patient received a dose of Levaquin at [facility]. Ceftriaxone and azithromycin were started upon admission. Discontinued IV antibiotics and started levofloxacin 750 mg. D/C levofloxacin and started azithromycin PO for COPD exacerbation. - Diagnostic studies ordered this admission include: * Sputum culture, normal elodia * Respiratory PCR, negative * Strep Ag negative and Legionella urine antigen pending * Pro calcitonin 0.8 - Repeat troponin negative <0.010 (troponin I was elevated at [facility] in setting of mild tachycardia and likely demand ischemia. - DuoNebs 4 times a day while awake and albuterol nebs every 2 hours as needed for shortness of breath. - His home medication list states that he no longer uses inhalers. - Patient takes 1-1/2 pills of prednisone daily (?). Giving him 20mg daily. No wheezing. - Consider pulmonary consultation if continues to decline clinically. 2. Acute on chronic hypoxemic respiratory failure, present on admission. Active. - Management as noted above. - DNI, BiPAP OK. - Continue supplemental oxygen as needed when necessary. Patient is on 3 L at baseline. - Currently using 2.5 - 3 liters. 3. Hypernatremia, not present on admission. Active. - Calculated free water deficit 1.8 L. - We will replete slowly with D5W at 50 mL/hr over the next 36 hours. - Encouraged by mouth intake. 4. Intermittent sinus tachycardia arrhythmia, unknown chronicity, active. - Cardiology, Dr. Lilly, saw and made recommendations. 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 - metoprolol daily which should be continued even if bradycardic - if beta yayo causing significant bradycardia symptoms or SOB, may be held - keep potassium above 4 and magnesium above 2 - likely from the underlying pulmonary disease - Dr. Lilly brought up hospice with Mr. Iyer who is not ready to talk about hospice 5. Right lower extremity edema, unknown acuity, present on admission. Active. - Venous Doppler ultrasound showed no DVT, as above. - May possibly represent CHF 6. Diarrhea, chronic. Stable. - Patient reports nonbloody diarrhea for the last month. - Potentially related to his recent antibiotics. - Monitor this admission, and if greater than 3 stools a day consider sending for further analysis. 7. Elevated lactic acid without acidosis, acuity unknown, present on admission. Resolved. - 2.1 initially, now normalized at 1.1. - Gentle fluid resuscitation initially but stopped with normalization of lactic acid 6. Elevated serum bicarbonate of unknown chronicity - In the setting of COPD potentially indicative of a chronic CO2 retainer - The PaCO2 noted on ABG at [facility] of 41.3 potentially reflects a decrease in his baseline due to tachypnea. However, this conclusion is not readily demonstrated as his pH is 7.4. - Continue to monitor labs. 8. Dysphagia, unknown acuity, present on admission. Active. - Speech evaluation revealed severe dysmotility. Thickened liquids ordered. Continue to work with speech therapy daily. - Continue his home omeprazole of 20mg - Follow up as outpatient 9. Goals of care - Palliative care consult ordered for consideration for hospice Chronic conditions: 10. CAD, chronic. Stable. - Continue aspirin. Patient no longer takes a statin. Confirm with PCP on Saturday 11. Ischemic cardiomyopathy heart failure with reduced EF 40-45% and moderate to severe aortic stenosis, chronic. Presumed stable. 12. Pulmonary fibrosis on chronic steroids, chronic. Stable. 13. Hypertension, chronic. Stable. - Not currently adequately treated. 14. Hyperlipidemia, chronic. Stable. - No longer on statin therapy. 15. GERD, chronic. Stable. - Continue Protonix 20 mg twice a day. 16. THU, chronic. Stable. - Apparently is not very compliant with CPAP at home. 17. BPH, chronic. Stable. - Continue tamsulosin. 18. 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 Stable. 19. Depression/anxiety, chronic. Stable. 20. Chronic neck and low back pain with sciatica, chronic. Stable. 21. Cognitive decline with memory impairment, chronic. Stable. PRN antiemetics: Zofran and Maalox. PRN bowel regimen: Senna and MiraLAX. PRN analgesics: Tylenol. Disposition: Discharge home in 1-2 days depending upon clinical course. .The patient was seen and examined together with Dr. Garcia on 01/21/17 and I agree with the history, exam and plan as outlined in the note above. GI Prophylaxis: Proton Pump Inhibitor VTE Prophylaxis: Sub-Q Heparin (Unfractionated) Resuscitation Status: DNR/DNI:Do Not Resuscitate/Intubate Zuly Garcia DO Jan 21, 2017 14:55 Richa Espinal DO Jan 21, 2017 18:13
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
--- NOTE | 2017-01-21 19:17 | PCM.PROC ---
Procedure Note Date of Service: Jan 21, 2017 Procedure: Procedure: Osteopathic Manipulative Treatment Subjective: Patient has both paroxysmal sinus tachycardia and COPD and complains of shortness of breath and chronic productive cough. He chronically uses oxygen at home and he says that he feels stiff. He has severe GERD and needs to sit upright 1/2 hour after eating otherwise his coughing is worse. Patient states that his shortness of breath is worse than usual and his is breathing a little faster than normal. Patient is currently optimized on his medications and medical management and seems that he could benefit from OMT. Risks and benefits of OMT were explained to the patient and verbal consent obtained: Osteopathic Structural Exam: Upper extremity: Upper trapezius on the right was hypertonic compared to the left. Ribs: Ribs 2,3,4 exhaled on the left Abd: Diaphragm restricted on the right greater than left Patient responded well to treatment. After treatment the patient's tachypenia had moderately improved. Osteopathic treatment modalities used: Myofascial release, BLT, rib raising, soft tissue technique Attending Statement The patient was seen and examined together with Dr. Garcia on 01/21/17 and I have added additional information to the note above. Zuly Garcia DO Jan 21, 2017 19:17 Richa Espinal DO Jan 23, 2017 13:54
[2017-01-21] MEDS: PARoxetine 20 mg Tablet PO SCH (23:01)
[2017-01-22 04:48] VITALS: BP 118/73; PULSE 76; RESP 24; O2SAT 96
--- NOTE | 2017-01-22 06:53 | NUR ---
Tele: Tele SR overnight, rate usually in the 90s.
[2017-01-22 07:07] LABS: BASOPHILS % (AUTO) 0.1 % (0-3); EOSINOPHILS % (AUTO) 2.5 % (0-5); MONOCYTES % (AUTO) 8.6 % (4-12); Mean Corpuscular Hemoglobin 27.6 pg (27.0-35.0); NEUTROPHILS % (AUTO) 77.5 % (40-74); Platelet Count 167 bil/L (150-400)
[2017-01-22 07:37] VITALS: PULSE 71; RESP 20; O2SAT 93
[2017-01-22] MEDS: Albuterol-Ipratropium 3 mL Inhalation Solution NEB SCH ×2 (07:37→12:13)
[2017-01-22] MEDS: guaiFENesin 600 mg ER12 Tablet PO SCH (08:30)
--- NOTE | 2017-01-22 08:31 | DRSVH ---
PROCEDURE: X-RAY CHEST ONE VIEW, PORTABLE ([id number]) INDICATIONS: COPD TECHNIQUE: One view of the chest was acquired. COMPARISON: [facility], CR, XR CHEST 1VW (PORTABLE), 01/20/2017, 10:28. [facility], CT, CT ANGIO CHEST PE, 01/19/2017, 13:55. [facility], CR, CHEST 2 VIEW, 03/18/2015, 15:47 . FINDINGS: Surgical changes and devices: None. Lungs and pleura: Diffuse, widespread interstitial opacities are present with superimposed air space opacity involving the right upper lobe and the lung bases similar to prior examination. Mediastinum: Mediastinal contours appear normal. Heart size is normal. Bones and chest wall: No suspicious bony lesions. Overlying soft tissues appear unremarkable. IMPRESSION: Chronic interstitial pulmonary fibrosis redemonstrated and acute air space opacity bilate rally suggestive of superimposed pneumonia similar to prior examination. Recommend clinical correlat ion and followup. Dictated by: Walt HOSKINS Interpreted: Génesis Thompson MD on 01/22/2017 at 8:28 Transcribed by: GINO on 01/22/2017 at 8:30 Approved by: Génesis Thompson M.D. on 01/22/2017 at 17:24
[2017-01-22] MEDS: Pantoprazole 40 mg ER24 Tablet PO SCH (08:54)
[2017-01-22] MEDS: predniSONE 20 mg Tablet PO SCH (08:54)
[2017-01-22] MEDS: Heparin 5,000 Unit/mL Inj SUBQ SCH (08:54)
[2017-01-22] MEDS: Sodium Chloride LOK Flush 10 mL Syringe IVFLUSH SCH (08:55)
[2017-01-22] MEDS ORDERED: Furosemide 10 mg/mL 2 mL Inj IVPUSH ONE (09:05)
[2017-01-22 12:13] VITALS: PULSE 81; RESP 20; O2SAT 94
--- NOTE | 2017-01-22 13:16 | PCM.DIMED ---
Mckayla Sweeney DO 01/22/17 1314: Discharge Instructions Date of Service Jan 22, 2017 Dates of Hospitalization Jan 19, 2017 at 00:48 Discharge Diagnosis Discharge Diagnosis 1. Acute exacerbation of COPD, present on admission. Resolving. 2. Acute on chronic hypoxemic respiratory failure, present on admission. Acute portion resolved. 3. Hypernatremia, not present on admission. Ongoing. 4. Intermittent sinus tachycardia arrhythmia, unknown chronicity. Stable. 5. Right lower extremity edema, unknown acuity, present on admission. Stable. 6. Diarrhea, chronic. Stable. 7. Elevated lactic acid without acidosis, acuity unknown, present on admission. Resolved. 6. Elevated serum bicarbonate, acuity unknown, present on admission. Ongoing. 8. Dysphagia, unknown acuity, present on admission. Active. 9. Goals of care Chronic conditions: 10. CAD, chronic. Stable. 11. Ischemic cardiomyopathy heart failure with reduced EF 40-45% and moderate to severe aortic stenosis, chronic. Presumed stable. 12. Pulmonary fibrosis on chronic steroids, chronic. Stable. 13. Hypertension, chronic. Stable. 14. Hyperlipidemia, chronic. Stable. 15. GERD, chronic. Stable. 16. THU, non-compliant with CPAP, chronic. Stable. 17. BPH, chronic. Stable. 18. 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 Stable. 19. Depression/anxiety, chronic. Stable. 20. Chronic neck and low back pain with sciatica, chronic. Stable. 21. Cognitive decline with memory impairment, chronic. Stable. . Medication Instructions New medications: Azithromycin 500 mg daily 4 more days. Metoprolol tartrate 12.5 mg twice a day. Prednisone 20 mg daily 1 more day. Continued medications: Aspirin 81 mg daily. Atorvastatin 40 mg daily at bedtime. Omeprazole 20 mg twice a day. Paroxetine 20 mg daily at bedtime. Prednisone 1.5 mg daily to resume once you finish last dose of prednisone 20 mg daily. Quetiapine 50 mg daily at bedtime. Tamsulosin 0.4 mg daily. Trazodone 50 mg daily at bedtime. Discontinued medications: Doxycycline 100 mg daily. . Diet Low fat, Low Sodium, Heart Healthy Activity Limited until seen by PCP, Other ([facility]) Call your provider Fever or Chills, Shortness of breath, Chest pain, Excessive diarrhea, Weakness ( unilateral) Patient Instructions Follow-up plan Please follow-up with your primary care physician, Dr. Lr, within the next week regarding your recent hospitalization. Please follow up with your installer inspector final, Dr. Lilly, within the next 1-2 weeks regarding your recent hospitalization and new medication metoprolol for your heart arrhythmia. . Follow-up Provider: Pablo Lr MD Follow-up with PCP in: 1 week Provider: Sid Lilly PA-C Follow-up in: 1 week Ricah Espinal DO 01/23/17 1356: Discharge Instructions Attending's Statement The patient was seen and examined together with Dr. Garcia on 01/22/17 and I agree with the history, exam and plan as outlined in the note above. Mckayla Sweeney DO Jan 22, 2017 13:14 Richa Espinal DO Jan 23, 2017 13:56
[2017-01-22] MEDS ORDERED: METO25TA6 PO (13:22)
[2017-01-22] MEDS ORDERED: ZIT250 PO (13:22)
[2017-01-22] MEDS ORDERED: PRED-508 PO (13:22)
--- NOTE | 2017-01-22 14:01 | NUR ---
Palliative care note D/A: Pt seen today by Dr. Luz. She has met with pt spouse who indicates strong interest in HNW info visit. She is pt primary CG. Dr. Luz notes that pt may not be 100% decisional. Spouse would like info visit set up at the pt home. Pt is scheduled to dc today. Note that spouse is Hellen. Phone numbers are [phone] and [phone]. Msg left for Valerie at [facility]. Will discuss referral. P: Palliative to follow as needed. Lexy [facility] Addendum: 01/22/17 at 1530 by BEBETO GONZALEZ Palliative care note amendment D/A: Case discussed with Valerie from [facility]. Indicate that pt is dc'ed and that spouse would like to have an HNW info visit in the family home. Provide Valerie with contact numbers for Hellen who is pt spouse and caregiver. Hellen can be reached at [phone] and [phone]. Valerie to reach out to spouse and schedule an info visit. P: No further need for palliative care to follow. Lexy S[facility]TON [facility]
--- NOTE | 2017-01-22 14:32 | NUR ---
Discharge Charge nurse reviewed d/c instructions with pt including care notes and new prescriptions, pt signed and given originals, copies to chart. IV d/c intact, tele removed. VS stable at d/c. All belongings taken with pt. Pt taken off unit via WC by WILBERT. Pt's to drive pt home.
--- NOTE | 2017-01-22 15:47 | PCM.PNPALL ---
Date of Service Jan 22, 2017 Date of Hospital Admission: Jan 19, 2017 at 00:48 Date of Palliative Consult: Jan 21, 2017 Palliative Care Recommendation Summary of palliative recommendations: 01/22/17 Primary discussion with his since any discussion with patient tends to get him upset. He becomes defensive and states he wants no help--see below note. 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 CHF--pt feels markedly improved with diuresing and loss of edema. Last EF of 45% . 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 Last PFT's available 2012 with FEV1 of 2.25 with modobstructive and mild restrictive components at that time.-3 hospitalizations for acute exacerbations. His /partner is very interested in hospice with the understanding that he would be able to be managed at home. She understands goal of comfort and support and to aim for home and not for further hospitalizations. She is interested in meeting with hospice and I think with patient hearing this with her present he will be more amenable. Will notify hospice to review records and assess patient. -Symptom management (Pain/other) Patient comfortable at this time. -DPOA/Advanced Directives/POLST DPOA is Hellen, Previously filled out POLST with Patient, , and Dr. Lzu. Patient DNR/DNI -Family/emotional support and son at home Discussion of needs at home will need to be carried out with tomorrow as she was not available in hospital or by phone today. Patient is not interested in assistance from the palliative care team at this time. If this is consistent with how the family feels we will sign off and be available to be consulted in the future if the need arises. If there are care needs at home those can be addressed once elucidated. Hospice Admission guidelines were referenced, If patient and family are willing to initiate this service it appears patient would likely qualify based on spending most of the day in a chair, he has fatigue with minimal exertion as he has difficulty bathing (will have sponge baths only) and is not able to prepare meals for himself due to dyspnea. His last documented spirometry was in 2012 with FEV1 64% of predicted and DLCO 67. It appears this has not been repeated recently since patient is claustrophobic. He has had multiple recent hospitalizations including a stay at [facility] 01/03-01/08/17 and this current admission 01/19/17. Additional Medical Diagnoses with primary management by Hospitalist team include : 1. Acute exacerbation of chronic obstructive pulmonary disease, present on admission. Active. -Differential diagnosis includes: Worsening pulmonary fibrosis, pneumonia, HF exacerbation, angina. Less likely pneumonia because of x-ray findings, leukocytosis could be from steroid use, no change in sputum production, no fevers or chills, no acute confusion, no pleurisy. * Would meet criteria for healthcare associated pneumonia with recent hospitalization for community-acquired etiology. -PE r/o with CT PE protocol -Per [facility] report, patient responded to nebulizer treatments, oxygen supplementation and IV dose of Solu-Medrol. -Patient received a dose of Levaquin at [facility]. Ceftriaxone and azithromycin were started upon admission. Discontinued IV antibiotics and started levofloxacin 750 mg daily starting tomorrow. - Diagnostic studies ordered this admission include: * Sputum culture, normal elodia * Respiratory PCR, negative * Strep Ag negative and Legionella urine antigen pending * Pro calcitonin 0.8 - Repeat troponin negative <0.010 (troponin I was elevated at [facility] in setting of mild tachycardia and likely demand ischemia. - Continue DuoNebs 4 times a day while awake and albuterol nebs every 2 hours as needed for shortness of breath. - His home medication list states that he no longer uses inhalers. - Consider pulmonary consultation if continues to decline clinically. 2. Acute on chronic hypoxemic respiratory failure, present on admission. Active. - Management as noted above. - DNI, BiPAP OK. - Continue supplemental oxygen as needed when necessary. Patient is on 3 L at baseline. 3. Hypernatremia, not present on admission. Active. - Calculated free water deficit 1.8 L. - We will replete slowly with D5W at 50 mL/hr over the next 36 hours. - Encouraged by mouth intake. 4. Right lower extremity edema, unknown acuity, present on admission. Active. - Venous Doppler ultrasound showed no DVT, as above. - May possibly represent CHF and may consider performing an echocardiogram. 5. Diarrhea, chronic. Stable. - Patient reports nonbloody diarrhea for the last month. - Potentially related to his recent antibiotics. - Monitor this admission, and if greater than 3 stools a day consider sending for further analysis. 6. Elevated lactic acid without acidosis, acuity unknown, present on admission. Resolved. - 2.1 initially, now normalized at 1.1. - Gentle fluid resuscitation initially but stopped with normalization of lactic acid 6. Elevated serum bicarbonate of unknown chronicity - In the setting of COPD potentially indicative of a chronic CO2 retainer - The PaCO2 noted on ABG at [facility] of 41.3 potentially reflects a decrease in his baseline due to tachypnea. However, this conclusion is not readily demonstrated as his pH is 7.4. - Continue to monitor labs. 8. Dysphagia, unknown acuity, present on admission. Active. - Speech evaluation revealed severe dysmotility. Thickened liquids ordered. Continue to work with speech therapy daily. - Continue his home omeprazole of 20mg - Follow up as outpatient Chronic conditions: CAD, chronic. Stable. - Continue aspirin. Patient no longer takes a statin. Confirm with PCP on Saturday Ischemic cardiomyopathy with EF 40-45% and moderate to severe aortic stenosis, chronic. Presumed stable. Pulmonary fibrosis on chronic steroids, chronic. Stable. Hypertension, chronic. Stable. - Not currently adequately treated. Hyperlipidemia, chronic. Stable. - No longer on statin therapy. GERD, chronic. Stable. - Continue Protonix 20 mg twice a day. THU, chronic. Stable. - Apparently is not very compliant with CPAP at home. BPH, chronic. Stable. - Continue tamsulosin. 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 Stable. Depression/anxiety, chronic. Stable. Chronic neck and low back pain with sciatica, chronic. Stable. Cognitive decline with memory impairment, chronic. Stable. Problems: End of Life Preferences DNR/DNI/no feeding tube Goals of Care He wants to be home. Disposition Discharged to home with follow up on hospice in near future Resuscitation Status Resuscitation Status: DNR/DNI:Do Not Resuscitate/Intubate POLST Updates/Changes Artificially Admin Nutrition: No Artifical Nutrition by Tube POLST Discussed with: Patient, Spouse/Other . Symptom management: Agitation, Dyspnea Palliative Subjective Palliative Care Daily Responde: Patient, Family/Proxy Brief History [address] Mckeon with known CAD, EF 45% and moderate along with chronic pulmonary issues that include possible recurrent agitation, COPD and pulmonary fibrosis which is followed and managed by Dr. Eubanks. He has now been hospitalized 3 times in the past 4-6 weeks for persistent recalcitrant pulm sx and dx of pneumonia. Home has been an increasing challenge. He is severely debilitated but with strong encouragement from his of 37 yrs- Hellen-he has been walking with his O2 from bed to the bathroom. This actually is an improvement but other diop he is very weak, very SOB and having increasing problems with his memory and his temper. She states his memory has definitely taken a decline--short term. They have an adult son of her's living with them as well as his family-the son recently incapacitated due to acute LBP past 3-4 weeks but trying to help with garbage etc. Mr Iyer does not want anyone in the home to help but tolerates a CG from [facility]. His has health issues including severe LBP and leg pain and reliant on can and short distances.The patient repeatedly states he is fine, can take care of himself etc. Subjective R facial ocular and side facial spasms CN= lungs decreased but his oxygenation is good-ox 97-96% trace edema cristi LE, no erythema to toes Palliative Performance Scale PPS Patient Status: Current PPS Ambulation: Mainly Bed PPS Activity: Unable to do most activity PPS Self-Care: Considerable assistance required PPS Intake: Normal or reduced PPS Conscious Level: Full or confusion Performace Scale: 50% ADLs ADL Patient Status: Baseline ADL Ambulation: Reduced ADL Feeding: Considerable assistance required ADL Hygene/bathing: Considerable assistance required Objective Findings Exam Vital Sign - Last Date Time Temp Pulse Resp B/P Pulse Ox O2 Delivery O2 Flow Rate FiO2 01/22/17 12:13 81 20 94 Nasal Cannula 3.00 01/22/17 04:48 36.9 118/73 Intake and Output 01/21/17 01/21/17 01/22/17 Cumulative From/Thru 15:00 23:00 07:00 01/19/17 00:55 - 01/22/17 06:09 Intake Total 621 ml 2070 ml 500 ml 7720 ml Output Total 1075 ml 1250 ml 5770 ml Balance 621 ml 995 ml -750 ml 1950 ml Intake Oral 940 ml 500 ml 5098 ml IV Total 621 ml 1130 ml 2622 ml Output Urine Total 1075 ml 1250 ml 5770 ml # Voids 3 # Bowel Movements 1 2 General: Alert, Oriented, Person, Place HEENT: PERRLA, EOMI, Scleral Anicteric, Other (recurrent R facial contortion with closed eye, grimace-then it can release) Heart: Regular Rate/Rhythm Neuro: Speech (fluid), Other (does not recall encounter with me from fall or telephone call. Acknowledges memory issues) Extremities: Edema (trace, LE without ulcer or significant amb) Lab/Diagnostics Lab and Imaging results reviewed in detail in EMR. Patient/Family Conference Members Present Family Members Present first with Mr Iyer and then with his Hellen Medical Team Members Present? Danilo TIAN [facility] Discussion/Goals of Care Discussion FAMILY UNDERSTANDING OF DISEASE: Patient has little to no recognition of his deficits. He get brusk and angry quickly.He has had decline since I saw him fall of last year.Part of that is in his cognitive impairment which his notices a significant decline. He will only let her manage everything at home and she is near burn out.She is sleep deprived and exhausted and has her own health issues. She attempted to walk into the hospital to get her and made it partway but had to stop in a chair due to pain and leg weakness and is unable to proceed further. Her son has back problems and is not able to do much either. DISEASE PROGRESSION/EVIDENCE OF DECLINE: SYMPTOM BURDEN: GOALS: Home with more help. She is not looking at SNF or NH--again a cost issue HOPES/WORRIES: His is very concerned re finances-they both have medicare and she has a pension. The cost of his hospital stays she sees as insurmountable for them. He has a caregiver from [email or web address] services but she is not able to assist him with bathing etc. FAMILY WISHES/VALUES: Do you want to be told truth about his illness, even if unpleasant? His wants this but the patient tends to dismiss any comment about his debility. Does family want to know prognosis when it can be predicted, to better guide treatment decisions? Yes-reviewed progressive debility with 3 hospitalizations and increasing CG burden as all being poor prognosis. Time spent Total time 60 minutes; >50% face to face with patient and/or family, providing counselling regarding plans and recommendations, and in care coordination with his/her medical teams. I also spent an additional [ ] minutes counseling for advanced care planning with the patient/the patients family/the surrogate decision maker. copies to: Pablo Lr MD; Sid Lilly MD, Deborah A MD Jan 22, 2017 15:47
--- NOTE | 2017-01-22 19:39 | PCM.DC.MED ---
Discharge Summary Date of Service Jan 22, 2017 Dates of Hospitalization Date of Hospital Admission Jan 19, 2017 at 00:48 Date of Discharge: Jan 22, 2017 Providers: Admitting Physician: Francis Severino MD Primary Care Physician: Pablo Lr MD Attending Physician: Francis Severino MD Diagnosis at Time of Discharge Diagnosis at Time of Discharge 1. Acute exacerbation of COPD, present on admission. Resolving. 2. Acute on chronic hypoxemic respiratory failure, present on admission. Acute portion resolved. 3. Hypernatremia, not present on admission. Ongoing. 4. Intermittent sinus tachycardia arrhythmia, unknown chronicity. Stable. 5. Right lower extremity edema, unknown acuity, present on admission. Stable. 6. Diarrhea, chronic. Stable. 7. Elevated lactic acid without acidosis, acuity unknown, present on admission. Resolved. 6. Elevated serum bicarbonate, acuity unknown, present on admission. Ongoing. 8. Dysphagia, unknown acuity, present on admission. Active. 9. Goals of care Chronic conditions: 10. CAD, chronic. Stable. 11. Ischemic cardiomyopathy heart failure with reduced EF 40-45% and moderate to severe aortic stenosis, chronic. Presumed stable. 12. Pulmonary fibrosis on chronic steroids, chronic. Stable. 13. Hypertension, chronic. Stable. 14. Hyperlipidemia, chronic. Stable. 15. GERD, chronic. Stable. 16. THU, non-compliant with CPAP, chronic. Stable. 17. BPH, chronic. Stable. 18. 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 Stable. 19. Depression/anxiety, chronic. Stable. 20. Chronic neck and low back pain with sciatica, chronic. Stable. 21. Cognitive decline with memory impairment, chronic. Stable. . Consultations Palliative Care Cardiology Procedures XRay, CTs & MRIs X-RAY CHEST ONE VIEW, PORTABLE IMPRESSION: Infiltrates in the right lung consistent with pneumonia. Dictated by: Naveen Jimenez M.D. on 01/20/2017 at 11:32 Approved by: Naveen Jimenez M.D. on 01/20/2017 at 11:33 CT ANGIO CHEST PULMONARY EMBOLISM IMPRESSION: A combination of emphysematous change and fibrotic change with mild alveolitis superimposed is present but no pulmonary embolus is seen. With reference to multiple prior plain films there has been little if any change in the overall appearance of the lung parenchyma over time. Dictated by: Phan Malik M.D. on 01/19/2017 at 14:55 Approved by: Phan Malik M.D. on 01/19/2017 at 14:58 US VENOUS LEG DUPLEX BILATERAL FINDINGS: The deep veins are normally compressible, and free of intraluminal thrombus. Color and pulse Doppler demonstrate normal phasic intravascular flow. There is normal augmentation response to distal compression maneuver. IMPRESSION: No DVT found over either lower extremity. Dictated by: Phan Malik M.D. on 01/19/2017 at 9:10 Approved by: Phan Malik M.D. on 01/19/2017 at 9:11 . ECG 12 Lead EKG from [facility] shows sinus tachycardia with a rate of 104 with occasional PVCs and PACs. [place] interval is borderline at 202, and the QRS is prolonged at 152, but the QTC is within normal range. QRS complex in lead V1 is consistent with RBBB. Deep Q waves in inferior leads are noted on previous exam. Cardiac Echo Impression Please see echo report in past medical history. Other Diagnostics ABG performed at [facility]: pH of 7.4, PCO2 41.9, PO2 107 (O2 sat 98%), on an FiO2 of 0.4. Brief History History of present illness on admission by Dr. Vera MONTEIRO: 76-year-old male with history of COPD on home oxygen (3 L/m), and pulmonary fibrosis who presented to [facility] ER with complaint of approximately 3 days increased shortness of breath and productive cough. Please note, patient was hospitalized from 01/03-01/08/17 at [facility] for acute on chronic hypoxic respiratory failure. He was treated with IV Rocephin, oral doxycycline, IV steroids. His presentation at that time was very similar to his presentation now. Patient reports that he has been short of breath and had a productive cough for the last 3 years. He reports that he has not slept much during that time due to his shortness of breath and cough. He reports that approximately 3 or 4 days ago he noticed an increase in his shortness of breath and his cough (he does note that it is no more productive than usual). In reports from [facility] it was noted that his O2 saturation at the time EMS arrived at his home was in the low 80s. They provided supplemental oxygen and a nebulizer treatment in the ER at [place] and his sats came up to 90's. He denies sick contacts, or recent travel. He is a somewhat poor historian, but notes that he is almost certain he had his flu shot this year, but cannot recall whether or not he has ever had his pneumococcal vaccine. He reports "my knows all of this." He denies any other bothersome symptoms including: Chest pain, fevers/chills, rash, swelling in his legs, headache, blurry vision, confusion. He reports some on and off diarrhea (couple times a day) that is nonbloody over the last month, but denies abd pain. He reports some difficulty swallowing, but denies choking/coughing when eating and drinking. Denies painful swallowing. In the ER at [facility] in EKG showed sinus tachycardia with a rate of 104 and occasional PVCs. A chest x-ray was performed in which no obvious infiltrate could be appreciated, but given his significant pulmonary fibrosis it would be easy to miss. A blood gas performed at that time showed a pH of 7.4 , PCO2 41.9, PO2 107 (O2 sat 98%), on an FiO2 of 0.4. He had an elevated white count with neutrophilia, and given the concern about an infiltrate in the setting of increased shortness of breath and cough he was given a dose of levofloxacin. Unfortunately, [facility] did not have any available beds, and they requested admission at our facility here at [facility]. Patient is admitted under inpatient status with expected length of stay greater than 2 midnights due to severity of presenting symptoms, risk of adverse event, and complexity of treatment plan. Comprehensive review of systems conducted and was negative except for the pertinent positives listed in history of present illness above. Hospital Course In the hospital, Mr. Iyer continued to have shortness of breath and required breathing treatments and initially 5 liters of oxygen which improved to his usual 3 liters. Initially considered pneumonia but labs and imaging did not support. also considered PE but CT was negative. Patient had several runs of sinus tachycardia and his statuary painter, Dr. Lilly, was consulted. Dr. Lilly started metoprolol 12.5 mg BID for symptom relief to be held if symptomatic bradycardia or increased shortness of breath. Outpatinet digoxin could be considered with close monitoring. Also suggested potassium kept greater than 4 and magnesium greater than 2 on a regular basis. Dr. Lilly believes his tachcardia is related to his pulmonary symptoms and also recommended hospice. Palliative care, Dr. Luz, stated that although patient has no interest in hospice care believing that he is "just fine", the was really interested as she is not able to fully care for her and realizes that he is closer to dying. Dr. Luz stated that she will discuss case with hospice and hospice will consider in the outpatient setting. He was discharged to home with continued [facility]. Speech therapy very concerned for aspiration since he has severe dysmotility of his esophagus. Primary care doctor to consider further speech therapy. 1. Acute exacerbation of COPD, present on admission. Resolved. -Differential diagnosis included: Worsening pulmonary fibrosis, pneumonia, HF exacerbation, angina. Less likely pneumonia because of x-ray findings, leukocytosis could be from steroid use, no change in sputum production, no fevers or chills, no acute confusion, no pleurisy. * Would meet criteria for healthcare associated pneumonia with recent hospitalization for community-acquired etiology. Upon reflection, do not believe patient ever had pneumonia. -PE r/o with CT PE protocol -Per [facility] report, patient responded to nebulizer treatments, oxygen supplementation and IV dose of Solu-Medrol. -Patient received a dose of Levaquin at [facility]. Ceftriaxone and azithromycin were started upon admission. Discontinued IV antibiotics and started levofloxacin 750 mg. D/C levofloxacin and started azithromycin PO for COPD exacerbation. - Diagnostic studies ordered this admission include: * Sputum culture, normal elodia * Respiratory PCR, negative * Strep Ag negative and Legionella urine antigen negative * Pro calcitonin 0.8 - Repeat troponin negative <0.010 (troponin I was elevated at [facility] in setting of mild tachycardia and likely demand ischemia. - DuoNebs 4 times a day while awake and albuterol nebs every 2 hours as needed for shortness of breath. - Patient takes 1-1/2 pills of prednisone daily (dose?). He received 20mg daily. No wheezing. 2. Acute on chronic hypoxemic respiratory failure, present on admission. Chronic, improved. - Management as noted above. - DNI, BiPAP OK. - Continued supplemental oxygen as needed when necessary. Initially 5 L, then down to 2.5-3 liters. Pt on 3 liters at home. 3. Hypernatremia, not present on admission. Ongoing, stable. - Calculated free water deficit 1.8 L. Attempted to replete slowly with D5W at 50 mL/hr over 36 hours but it stayed at 146 4. Intermittent sinus tachycardia arrhythmia, unknown chronicity, not active on last 2 days. - Cardiology, Dr. Lilly, saw and made recommendations. Dr. Lilly is his outpatient statuary painter as well. - metoprolol daily which should be continued even if bradycardic - if beta yayo causing significant bradycardia symptoms or SOB, may be held - keep potassium above 4 and magnesium above 2 - likely from the underlying pulmonary disease - Dr. Lilly brought up hospice with Mr. Iyer who is not ready to talk about hospice 5. Right lower extremity edema, unknown acuity, present on admission. Improved. - Venous Doppler ultrasound showed no DVT, as above. Given 20mg lasix by IV prior to discharge 6. Diarrhea, chronic. Resolved. - Patient reported nonbloody diarrhea for the last month. - Potentially related to his recent antibiotics. 7. Elevated lactic acid without acidosis, acuity unknown, present on admission. Resolved. 6. Elevated serum bicarbonate of unknown chronicity - In the setting of COPD potentially indicative of a chronic CO2 retainer - The PaCO2 noted on ABG at [facility] of 41.3 potentially reflects a decrease in his baseline due to tachypnea. However, this conclusion is not readily demonstrated as his pH is 7.4. 8. Dysphagia, unknown acuity, present on admission. Active. - Speech evaluation revealed severe dysmotility. Thickened liquids ordered. Continued to work with speech therapy daily. - Continued his home omeprazole of 20mg 9. Goals of care - Palliative care met with patient who promptly dismissed them saying that he was "just fine." later met with palliative care and she was interested in hospice. Dr. Luz will be getting outpatient follow consideration by hospice for this patient. Chronic conditions: 10. CAD, chronic. Stable. - Continued aspirin. Patient no longer takes a statin. 11. Ischemic cardiomyopathy heart failure with reduced EF 40-45% and moderate to severe aortic stenosis, chronic. Presumed stable. 12. Pulmonary fibrosis on chronic steroids, chronic. Stable. 13. Hypertension, chronic. Stable. 14. Hyperlipidemia, chronic. Stable. - No longer on statin therapy. 15. GERD, chronic. Stable. - Continued Protonix 20 mg twice a day. 16. THU, chronic. Stable. - Apparently is not very compliant with CPAP at home. 17. BPH, chronic. Stable. - Continue tamsulosin. 18. 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 Stable. 19. Depression/anxiety, chronic. Stable. 20. Chronic neck and low back pain with sciatica, chronic. Stable. 21. Cognitive decline with memory impairment, chronic. Stable. PRN antiemetics: Zofran and Maalox. PRN bowel regimen: Senna and MiraLAX. PRN analgesics: Tylenol. Exam Vital Signs (Last) Date Time Temp Pulse Resp B/P Pulse Ox O2 Delivery O2 Flow Rate FiO2 01/22/17 12:13 81 20 94 Nasal Cannula 3.00 01/22/17 04:48 36.9 118/73 Exam General: Alert, Oriented X3, Cooperative, No Acute Distress Head: Normocephalic, atraumatic. Eyes: Right-sided ptosis (long-standing) Mouth: Mouth Normal, Mucous Membranes Moist/[place] Neck: Neck supple with full range of motion. No Thyromegaly. Chest & Lungs: Bibasilar crackles without wheezing. No rhonchi appreciated. Tachypneic but in no respiratory distress. Appears not to notice fast breathing. Productive cough. Cardiovascular: Regular Rate/Rhythm, Normal S1, Normal S2. Difficult to appreciate over respirations, but can detect faint systolic murmur. Radial pulses are 2+ bilaterally. Diminished posterior tibial pulses. GI: Non-tender, Non-distended, No masses, Normoactive bowel tones, Soft, burping frequently Extremities: Vertical surgical scars over the cervical and lumbar spine; 2+ LE edema to knee B/L when examined this morning with no calf tenderness Neurological: Cranial Nerves 2-12 grossly Intact, recognizes memory impairment. Psych: Normal mood and affect. Test 01/19/17 01:35 01/19/17 07:45 01/19/17 10:00 01/20/17 05:21 Urine Color Dark yellow (YELLOW) Urine Appearance Hazy (CLEAR,HAZY) Urine pH 5.5 (5.0-8.0) Urine Specific [place] 1.020 (1.003-1.035) Urine Protein Negativemg/dL (NEG,TRACE) Urine Glucose (UA) Negativemg/dL (NEGATIVE) Urine Ketones Negativemg/dL (NEGATIVE) Urine Occult Blood Negative (NEGATIVE) Urine Nitrite Negative (NEGATIVE) Urine Bilirubin Negative (NEGATIVE) Urine Urobilinogen Normalmg/dL (NORMAL) Urine Leukocyte Esterase Negative (NEGATIVE) Urine RBC 0-2/hpf (0-2) Urine WBC 0-5/hpf (0-5) Urine Epithelial Cells Occasional/hpf (NONE-MOD) Urine Crystals None seen (NONE SEEN) Urine Bacteria Few/hpf (NONE-FEW) Urine Hyaline Casts None/lpf (NONE) Urine Granular Casts None seen (NONE SEEN) Urine Waxy Casts None seen (NONE SEEN) Urine Red Blood Cell Casts None seen (NONE SEEN) Urine White Blood Cell Casts None seen (NONE SEEN) Urine Mucus Present (None Seen) Urine Trichomonas None seen (NONE SEEN) Urine Yeast None (NONE SEEN) Urinalysis Comment None Urine Culture Reflexed Not indicated Urine Legionella pneumophilia Ag Negative (Negative) Phosphorus Level 4.3mg/dL (2.5-4.9) Troponin T 0.010ug/L (0.0-0.011) Lactic Acid Level 1.1mmol/L (0.4-2.0) Procalcitonin 0.06ng/mL (0.00-0.08) Test 01/22/17 06:13 White Blood Count 6.8th/mm3 (3.8-10.1) Red Blood Count 4.78mil/mm3 (4.40-5.80) Hemoglobin 13.2g/dL (13.8-17.2) Hematocrit 41.6% (41.0-50.0) Mean Corpuscular Volume 87.0fL (81-100) Mean Corpuscular Hemoglobin 27.6pg (27.0-35.0) Mean Corpuscular Hemoglobin Concent 31.7% (32.0-37.0) Red Cell Distribution Width 16.4% (12.3-15.4) Platelet Count 167bil/L (150-400) Neutrophils (%) (Auto) 77.5% (40-74) Lymphocytes (%) (Auto) 11.2% (14-46) Monocytes (%) (Auto) 8.6% (4-12) Eosinophils (%) (Auto) 2.5% (0-5) Basophils (%) (Auto) 0.1% (0-3) Sodium Level 146mEq/L (134-144) Potassium Level 3.8mEq/L (3.5-5.2) Chloride Level 107mEq/L (97-108) Carbon Dioxide Level 31mmol/L (18-29) Blood Urea Nitrogen 5mg/dL (8-27) Creatinine 0.64mg/dL (0.76-1.27) Estimat Glomerular Filtration Rate 130mL/min (>59) Glucose Level 86mg/dL (60-99) Calcium Level 8.6mg/dL (8.5-10.1) Magnesium Level 2.0mg/dL (1.6-2.6) Total Bilirubin 1.2mg/dL (0.0-1.2) Aspartate Amino Transf (AST/SGOT) 21U/L (0-50) Alanine Aminotransferase (ALT/SGPT) 39U/L (0-44) Alkaline Phosphatase 69U/L (25-160) Total Protein 4.7g/dL (6.4-8.4) Albumin 2.8g/dL (3.4-5.0) Microbiology Results Viral respiratory PCR negative. MRSA screen negative. Strep pneumonia and legionella urine antigens negative. . Discharge Medications Discharge Medications Aspirin (Aspirin) 81 Mg Tablet 81 MG PO DAILY (Reported) Atorvastatin (Lipitor) 40 Mg Tablet 40 MG PO DAILY (Reported) Azithromycin (Zithromax) 250 Mg Tablet 500 MG PO Q24H Prescribed by: DANA MAI DO Metoprolol Tartrate (Metoprolol Tartrate) 25 Mg Tablet 12.5 MG PO BID Prescribed by: DANA MAI DO Omeprazole (Omeprazole) 20 Mg Capsule.dr 20 MG PO BID (Reported) Paroxetine (Paroxetine) 20 Mg Tablet 20 MG PO HS (Reported) PredniSONE (PredniSONE) 1 Mg Tab 1.5 MG PO UD (Reported) Prednisone (Deltasone) 20 Mg Tablet 20 MG PO DAILY Prescribed by: DANA MAI DO Quetiapine Fumarate (Quetiapine Fumarate) 50 Mg Tablet 50 MG PO HS (Reported) Tamsulosin (Flomax) 0.4 Mg Capsule 0.4 MG PO DAILY (Reported) Trazodone (Trazodone) 50 Mg Tablet 50 MG PO HS (Reported) Additional med instructions New medications: Azithromycin 500 mg daily 4 more days. Metoprolol tartrate 12.5 mg twice a day. Prednisone 20 mg daily 1 more day. Continued medications: Aspirin 81 mg daily. Atorvastatin 40 mg daily at bedtime. Omeprazole 20 mg twice a day. Paroxetine 20 mg daily at bedtime. Prednisone 1.5 mg daily to resume once you finish last dose of prednisone 20 mg daily. Quetiapine 50 mg daily at bedtime. Tamsulosin 0.4 mg daily. Trazodone 50 mg daily at bedtime. Discontinued medications: Doxycycline 100 mg daily. . Followup Plan Follow-up plan Please follow-up with your primary care physician, Dr. Lr, within the next week regarding your recent hospitalization. Please follow up with your statuary painter, Dr. Lilly, within the next 1-2 weeks regarding your recent hospitalization and new medication metoprolol for your heart arrhythmia. . Discharge Diet: Low fat, Low Sodium, Heart Healthy Discharge Activity: Limited until seen by PCP, Other ([facility]) Follow-up Provider: Pablo Lr MD Follow-up with PCP in: 1 week Provider: Sid Lilly PA-C Follow-up in: 1 week Attending Statement The patient was seen and examined together with Dr. Garcia on 01/22/17 and I agree with the history, exam and plan as outlined in the note above. copies to: Pablo Lr MD, Janice M DO Jan 22, 2017 19:39 Richa Espinal DO Jan 23, 2017 13:58
--- NOTE | 2017-01-24 14:31 | NUR ---
Palliative care note D/A: Phone call to [facility] and check in with Angle about arrangements of the requested info visit. Angle indicates that info visit is planned for today 01/24/17 at 1500. P: No further need for palliative care to follow. Lexy SINGLETON, CCM
== END 2017-01-22 13:55 | disposition home or self-care (01) | DRG 190 ==
LOC: MPC 01-19 00:48
PROVIDERS: ADMIT Hospitalist; ATTEND Hospitalist
DX: J44.1 Chronic obstructive pulmonary disease with (acute) exacerbation (principal); J96.21 Acute and chronic respiratory failure with hypoxia; E87.4 Mixed disorder of acid-base balance; I47.1 Supraventricular tachycardia; E87.0 Hyperosmolality and hypernatremia; J84.10 Pulmonary fibrosis, unspecified; R60.9 Edema, unspecified; R19.7 Diarrhea, unspecified; E87.8 Other disorders of electrolyte and fluid balance, not elsewhere classified; R13.10 Dysphagia, unspecified; I25.5 Ischemic cardiomyopathy; I35.0 Nonrheumatic aortic (valve) stenosis; Z79.52 Long term (current) use of systemic steroids; I10 Essential (primary) hypertension; R79.89 Other specified abnormal findings of blood chemistry; G47.33 Obstructive sleep apnea (adult) (pediatric); N40.0 Benign prostatic hyperplasia without lower urinary tract symptoms; Z79.82 Long term (current) use of aspirin; Z87.891 Personal history of nicotine dependence; I25.10 Atherosclerotic heart disease of native coronary artery without angina pectoris; I25.2 Old myocardial infarction; Z99.81 Dependence on supplemental oxygen; Z66 Do not resuscitate; R41.81 Age-related cognitive decline